=== PATIENT | female | born 1940 | race Caucasian/White ===

== ENCOUNTER → 2016-08-01 | Outpatient (CLI) | payer OTHER ==
[~2016-08-01] MED LIST: ALENDRONATE SOD70 MG PO; ALEVE220 M1 PO; CIPRO500 MG PO; CYMBALTA30 MG PO; IBUPROFEN 200200 M1 PO; LATANOPROST 0.2.5 ML OP; LYRICA 50 MG50 MG PO; LYRICA100 MG PO
== END ==
LOC: RAD 10:14
DX: M25.561 Pain in right knee (principal)

== ENCOUNTER → 2020-01-24 | Outpatient (CLI) | payer OTHER ==
[~2020-01-24] VITALS: Ht 149.9 cm; Wt 70.9 kg
[~2020-01-24] MED LIST changes: +ATORVASTATIN CA80 MG PO; +CALCIUM 500 +1 EAC6 PO; +DULOXETINE HCL60 MG PO; +HYDROCODONE PO; +IMVEXXY4 MCG VAG; +MOBIC7.5 MG PO; +MOTRIN IB200 M2 PO; +REQUIP 1 MG TABL1 M1 PO
[2020-01-24 13:41] VITALS: BP 131/71
--- NOTE | 2020-01-24 14:13 | NUR ---
Pain Clinic Assessment: 1. History of Osteoarthritis: Not Applicable History of Rheumatoid Arthritis: Not Applicable 2. Height: 4 ft. 11 in. 149.9 cm. Weight: 156.4 lb. oz. 70.943 kg. Patient's BMI: 31.6 3. Vital Signs: BP: 131/71 Pulse: 81 Resp: 20 Temp: 02 Sat: 96 ECG Mon: 4. Pain Intensity: 6-7 5. Fall Risk: Dizziness: Y Needs help standing or walking: N Fallen in the last 3 months: N Fall risk comments: 6. Patient on Blood Thinner: None 7. History of Hypertension: N 8. Opioid Therapy greater than 6 weeks: N Opiate Contract Signed: 9. Risk Assessment Tool Provided: 10. Functional Assessment Tool: 11. Recreational Drug Use: Never Drug Type: Tobacco Use: Never Smoker Tobacco Type: Amount or Packs/day: How Many Years: Alcohol Use: No Frequency: Quant:
--- NOTE | 2020-01-25 11:24 | HPC ---
[facility] [place] [address] PAIN MANAGEMENT CONSULTATION Name: GLADYS SINGH Room #: REG ERIN Himanshu.#: [id number] Admission: 01/24/20 Attend Phys: Johan Coronel DO Discharge: Date of : 44 Report #: [id number] CC: Dr. Venecia Coronel DATE OF SERVICE: 01/24/2020 REFERRING PHYSICIAN: Dr. Cuadra. CHIEF COMPLAINT: Low back pain, left lower extremity pain with paresthesias. HISTORY OF PRESENT ILLNESS: As you know, the patient is a 79-year-old female with longstanding history of low back pain, left lower extremity pain with paresthesias. She was referred to our clinic by her primary care physician in 03/2018 to treat low back pain, left lower extremity pain with paresthesias. The patient was started on medication with escalating doses of Lyrica reaching 150 mg t.i.d. with good and prolonged efficacy. The patient was doing very well and has been lost to followup visit since 07/2018. She returns today in followup visit, stating that her primary care physician has advised her that it is illegal for them to write Lyrica over 100 mg 3 times a day. She indicates that she was doing very well with the 150 mg t.i.d. dose and has recurrence of pain now at a level of 6-7/10. She returns today in followup visit to discuss the possibility of going back on the Lyrica and a possible epidural injection. She returns today to discuss this with us. She denies injury or trauma that may have led to symptom reoccurrence. She states she may have exacerbated her symptoms while lifting heavy groceries though she cannot correlate that incident directly to that activity. ALLERGIES: PENICILLIN. CURRENT MEDICATIONS: Calcium carbonate 1 tab per day, estradiol 4 mcg inserted vaginally every day, ibuprofen 200 mg once a day, atorvastatin 80 mg once a day, Lyrica 100 mg 3 times a day, meloxicam 7.5 mg twice a day, hydrocodone 7.5/325 one tab every 6 hours p.r.n. for pain, ropinirole 1 mg 3 tabs p.o. at bedtime, Cymbalta 60 mg once a day, latanoprost 1 drop each eye per day, alendronate 70 mg once a day. SOCIAL HISTORY: The patient denies tobacco, alcohol, IV or illicit drug use. She is retired, retired years ago, unaccompanied at today's visit. IMAGING: No new imaging available. 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 No rheumatoid arthritis. She indicates pain today at level of 6-7/10. She is not a fall risk, has not had a fall in last 3 months. She is not on blood thinners, nor she reportedly taking medication for hypertension. She is not on opioids provided by her primary care physician, has a low opioid addiction potential based on assessment tool. Pain impact shows severe interference of daily activities secondary to pain with a pain score of 50 out of 70. PHYSICAL EXAMINATION: VITAL SIGNS: Blood pressure 131/71, pulse is 81, respiratory rate 20 and unlabored. The patient is 96% on room air. Height 4 feet 11 inches tall, weight 156.4 pounds, BMI calculated 31.6. GENERAL: Well-developed, well-nourished, well-hydrated 79-year-old female, appears her stated age. She is in mild distress secondary to pain, placing current pain score 6-7/10. HEENT: Normocephalic, atraumatic. Pupils equal with no dilation and no anisocoria. NEUROLOGIC: Speech is fluent for patient. The patient is a fair historian. LUNGS: Clear, no wheeze, rhonchi or rales. CARDIOVASCULAR: Regular. No appreciable gallop, no rub. ABDOMEN: Soft, obese, normoactive bowel sounds. EXTREMITIES: Show no clubbing, no cyanosis. No appreciable edema. MUSCULOSKELETAL: Lower extremity strength is symmetrical, though there is giveaway strength noted with hip flexion, knee extension on the left when compared to the right. Seated straight leg raising negative. Supine straight leg raising appears to be positive on the left, though difficult for us to ascertain specifically as the patient is nonspecific in the distribution of pain. Gait is mildly antalgic favoring left lower extremity. She appears to be intact to light touch from L1 through S2 dermatomes. ASSESSMENT: 1. Chronic low back pain. 2. Left buttock pain, presumably lumbar radiculopathy. 3. Chronic intractable pain. PLAN: 1. The patient returns today in followup visit having been lost to our services since 07/2018 where she was taking Lyrica 150 mg t.i.d. with good efficacy. The patient states that she has been advised by her primary care physician that it is illegal for him to write medication over 100 mg 3 times a day in the form of pregabalin. This I believe is a misunderstanding from the patient's standpoint as there is no legal limitation to any medication as long as it is within the standard of care. Lyrica can be dosed as high as 600 mg per day, that of 150 mg 3 times a day that equals a total of 450 well within the safe range. I have advised the patient that we will be willing to provide her with 50 mg tablet to add to her current 100 mg tablets to reach 150 mg t.i.d. for where she was receiving excellent benefit, no side effects. She can follow up with her PCP to continue this therapy. There is no requirement that a pain management physician write Lyrica 150 mg 3 times a day and I do believe the patient was either misinformed or misunderstood the conversation. This can be easily taken over by the primary care. This is a schedule free medication and requires no special training. The patient's prescription was sent via e-scribed to local pharmacy. She will be taking the 50 mg we provided 3 times a day with her current 100 mg for a total of 150 mg t.i.d. 2. We have advised the patient if she is not seeing significant pain improvement in the next 2 weeks with the changes in medication, return for an epidural injection under fluoroscopic guidance to address suspected lumbar radiculopathy. We made the patient a tentative appointment to follow up with our clinic. At that time, if she is doing well, she can cancel that appointment. 3. We wish to thank Dr. Cuadra for the opportunity to see this patient in consultation. We will keep you apprised of any other changes to be made in medication management before returning her care to your capable services. We will be always available to see her back for epidural injections. <ELECTRONICALLY SIGNED> By: Johan Coronel DO 01/25/20 1124 1600 36 Johan Coronel DO /nt
== END ==
LOC: PAIN 06:59
PROVIDERS: ATTEND Anesthesiology Pain Medicine
DX: M54.16 Radiculopathy, lumbar region (principal); G89.4 Chronic pain syndrome; Z88.0 Allergy status to penicillin; Z79.899 Other long term (current) drug therapy; Z79.891 Long term (current) use of opiate analgesic

== ENCOUNTER → 2020-02-14 | Outpatient (CLI) | payer OTHER ==
--- NOTE | 2020-02-14 12:48 | NUR ---
Pain Clinic Assessment: 1. History of Osteoarthritis: Not Applicable History of Rheumatoid Arthritis: Not Applicable 2. Height: ft. in. cm. Weight: lb. oz. kg. Patient's BMI: 3. Vital Signs: BP: Pulse: Resp: Temp: 02 Sat: ECG Mon: 4. Pain Intensity: 10 5. Fall Risk: Dizziness: Needs help standing or walking: Fallen in the last 3 months: Fall risk comments: 6. Patient on Blood Thinner: None 7. History of Hypertension: N 8. Opioid Therapy greater than 6 weeks: N Opiate Contract Signed: 9. Risk Assessment Tool Provided: 10. Functional Assessment Tool: 11. Recreational Drug Use: Never Drug Type: Tobacco Use: Never Smoker Tobacco Type: Amount or Packs/day: How Many Years: Alcohol Use: No Frequency: Quant:
--- NOTE | 2020-02-15 12:43 | HPC ---
[facility] [place] [address] PAIN MANAGEMENT CONSULTATION Name: GLADYS SINGH Room #: REG ERIN Himanshu.#: [id number] Admission: 02/14/20 Attend Phys: Johan Coronel DO Discharge: Date of : 42 Report #: [id number] THIS REPORT FOR: cc: Phillip Rothman MD, Eric K. MD Johnson, James E. DO ~ DATE OF SERVICE: 02/14/2020 REFERRING PHYSICIAN: Dr. Cuadra. CHIEF COMPLAINT: Low back pain, left lower extremity pain with paresthesias. HISTORY OF PRESENT ILLNESS: As you know, the patient is a 79-year-old female returning today in followup visit with 10/10 pain. She is reporting pain radiating from the low back down the left leg. She returns today to undergo lumbar epidural injection under fluoroscopic guidance. She was referred back to our clinic after being lost to followup visit for nearly a year and a half due to decrease in her Lyrica leading to exacerbation of her pain. She was advised by her primary care physician that they could not right greater than 300 mg of Lyrica per day as it was illegal. I believe the patient is misinformed or misheard the conversation. There is no legal statute in regards to the use of Lyrica medications. She has returned today indicating that despite the increase in her Lyrica, her pain continued. She has been provided today's appointment to undergo lumbar epidural injection under fluoroscopic guidance. She comes to us without imaging studies, so we cannot advise the patient on the severity of pathology. She returns today to undergo an epidural injection under fluoroscopic guidance. ALLERGIES: PENICILLIN. CURRENT MEDICATIONS: See chart. SOCIAL HISTORY: The patient denies tobacco, alcohol, IV or illicit drug use. She is retired, retired years ago, unaccompanied today. IMAGING: No new imaging available. PQRS: The patient has known arthritic changes of the lumbar spine, bilateral hips. No rheumatoid arthritis. Pain intensity today 10/10. She is a fall risk, but has not had a fall in last 3 months. She is not on blood thinners, nor she is treated for hypertension. She is on chronic opioids and has a low opiate addiction potential. Pain impact 70/70, complete interference of daily activities secondary to pain. PHYSICAL EXAMINATION: [facility] [address] [place] [address] PAIN MANAGEMENT CONSULTATION Name: GLADYS SINGH Room #: REG CL Himanshu.#: [id number] Admission: 02/14/20 Attend Phys: Johan Coronel DO Discharge: Date of : 42 Report #: [id number] VITAL SIGNS: Blood pressure 142/78, pulse 104, respiratory rate 22. She is emotionally labile, placing current pain score 10/10. HEENT: Normocephalic, atraumatic. EXTREMITIES: Show no clubbing, no cyanosis, and no edema. MUSCULOSKELETAL: Lower extremity strength equal and symmetrical, though there is giveaway strength noted with hip flexion, knee extension on the left when compared to the right. Seated straight leg raising negative. Supine straight leg raising positive on the left. ASSESSMENT: 1. Lumbar radiculopathy. 2. Chronic low back pain. 3. Chronic intractable pain. PLAN: 1. The patient has returned today in followup visit indicating intensification of pain to a level of 10/10. We made adjustments in her Lyrica last visit as she was reduced from 450 to 300 mg and lost efficacy. We reinitiated the medication at the dose where she was seeing good benefit without side effects. She unfortunately did not see pain resolved. She returns today for an epidural injection under fluoroscopic guidance. The patient has been advised risks and benefits of the procedure. These risks include but are not necessarily limited to bleeding, bruising, infection, worsening pain, no relief of pain, also risk of temporary or permanent muscle weakness, temporary or permanent nerve damage, possible paralysis and . The patient states understood and wished to proceed. 2. No medication changes made at today's visit. She will continue the 450 Lyrica dose per day. She will continue the medication as directed. 3. I have advised the patient if she does not note any improvement in symptoms with the epidural injection today, she will contact her PCP to undergo MRI and obtain referral for Neurosurgery consultation. If she sees benefit with the epidural injection we would be more than willing to see the patient back in followup to undergo next in the series when or if her symptoms do return. The patient is agreeable. PROCEDURE NOTE: DESCRIPTION OF PROCEDURE: L5-S1 left paramedian epidural steroid injection under fluoroscopic guidance. This is the first procedure of the first series that the patient is undergoing. After obtaining written consent, the patient was taken back to the fluoroscopy suite, placed in a prone position with pillow under the abdomen to decrease lumbar lordosis. The skin overlying the lumbosacral area was then prepped and draped in aseptic fashion. The L5-S1 vertebral interspace was then identified by AP fluoroscopy. The skin and subcutaneous tissue overlying the target site [address] [address] PAIN MANAGEMENT CONSULTATION Name: GLADYS SINGH Room #: REG CLPedro Hamlin#: [id number] Admission: 02/14/20 Attend Phys: Johan Coronel DO Discharge: Date of : 42 Report #: [id number] of injection was anesthetized with 3 mL 1% lidocaine. A 20-guage 3-1/2 inch Tuohy needle was then advanced under fluoroscopic guidance towards the epidural space using a left paramedian approach. The epidural space was identified using loss of resistance to air technique. After negative aspiration for heme or cerebrospinal fluid, a total of 1 mL of Omnipaque was injected. A lumbar epidurogram was confirmed using both AP and lateral fluoroscopy. After negative aspiration for heme or cerebrospinal fluid, 5 mL of a solution containing 2 mL 40 mg per mL, 80 mg total triamcinolone along with 3 mL lidocaine 1% was injected in increments. Contrast spread was noted posterior epidural space. The needle was then retracted approximately half way and needle tract flushed with 1 mL of 1% lidocaine. Needle was then removed. There were no apparent sensory or motor deficits in the lower extremity following the procedure. A sterile bandage was placed over the injection site. The heart rate, pulse, oximetry and blood pressure were continuously monitored after the procedure. There were no apparent complications. The patient tolerated the procedure well and was carefully escorted to the recovery room in stable condition. There were no apparent complications. After meeting discharge criteria, the patient was then discharged home. <ELECTRONICALLY SIGNED> By: Johan Coronel DO 02/15/20 1243 1348 0043 Johan Coronel DO /nt
== END | disposition home or self-care (01) ==
LOC: PAIN 02-07 10:24
PROVIDERS: ATTEND Anesthesiology Pain Medicine
DX: M54.16 Radiculopathy, lumbar region (principal); G89.29 Other chronic pain; Z98.890 Other specified postprocedural states; Z79.899 Other long term (current) drug therapy; Z88.0 Allergy status to penicillin

== ENCOUNTER → 2020-03-20 | Outpatient (CLI) | payer OTHER ==
[~2020-03-20] VITALS: Ht 149.9 cm; Wt 66.2 kg
[~2020-03-20] MED LIST changes: +LYRICA150 MG PO
[2020-03-20 12:44] VITALS: BP 134/84
--- NOTE | 2020-03-20 13:03 | NUR ---
Pain Clinic Assessment: 1. History of Osteoarthritis: Not Applicable History of Rheumatoid Arthritis: Not Applicable 2. Height: 4 ft. 11 in. 149.9 cm. Weight: 146.0 lb. oz. 66.225 kg. Patient's BMI: 29.5 3. Vital Signs: BP: 134/84 Pulse: 91 Resp: 16 Temp: 02 Sat: 98 ECG Mon: 4. Pain Intensity: 7-8 5. Fall Risk: Dizziness: Y Needs help standing or walking: N Fallen in the last 3 months: N Fall risk comments: 6. Patient on Blood Thinner: None 7. History of Hypertension: N 8. Opioid Therapy greater than 6 weeks: N Opiate Contract Signed: 9. Risk Assessment Tool Provided: 10. Functional Assessment Tool: 11. Recreational Drug Use: Never Drug Type: Tobacco Use: Never Smoker Tobacco Type: Amount or Packs/day: How Many Years: Alcohol Use: No Frequency: Quant:
--- NOTE | 2020-03-21 11:33 | HPC ---
[facility] [address] [place] [address] PAIN MANAGEMENT CONSULTATION Name: GLADYS SINGH [id number] Admission: 03/20/20 Attend Phys: Johan Coronel DO Discharge: Date of : 42 Report #: [id number] THIS REPORT FOR: cc: Phillip Rothman MD, Eric K. MD Johnson, James E. DO ~ DATE OF SERVICE: 03/20/2020 REFERRING PHYSICIAN: Phillip Rothman MD CHIEF COMPLAINT: Low back pain, left lower extremity pain with paresthesias. HISTORY OF PRESENT ILLNESS: As you know, the patient is a 79-year-old female who returns today in followup visit having undergone a lumbar epidural injection at her last visit of 02/14/2020 where she was complaining of 10/10 pain and unable to ambulate on her own. She returns today in followup visit stating her pain continues. It is described as constant, aching and throbbing. She places current pain score at 7-8/10. She states that standing, walking, sitting and any activity tends to exacerbate symptoms. Pain is improved with ice, heat and cold compresses, repositioning, lying down and pillows. The patient is having difficulty today articulating the source of her symptoms. She indicates pain begins in low back, radiates to the buttock and into the groin and that she is not confident that the epidural injection at our last visit gave much in the way of improvement in symptoms, though she has returned today ambulating on her own. Her pain is now at a level of 7-8/10 and she is able to sit comfortably during our evaluation today. She has been provided today's appointment to return to discuss the possibility of undergoing the next in the series of lumbar epidural injections. ALLERGIES: PENICILLIN. CURRENT MEDICATIONS: Pregabalin 150 mg 3 times a day, calcium carbonate 1 tab per day, estradiol 4 mcg intravaginally, ibuprofen 200 mg t.i.d., atorvastatin 80 mg per day, meloxicam 7.5 mg once a day, ropinirole 1 mg 3 tabs p.o. at bedtime, duloxetine 60 mg once a day, alendronate 70 mg once a week. SOCIAL HISTORY: The patient denies tobacco, alcohol, IV or illicit drug use. She is retired, retired years ago, unaccompanied today. IMAGING: No new imaging available. PQRS: The patient has known arthritic changes of the lumbar spine, bilateral hips. No rheumatoid arthritis. Pain intensity is reported today at 7-8/10. She is at fall risk, has not had a fall in last 3 months. She is not on blood thinners and is not treated for hypertension. She is reporting opioids, but they do not appear to be chronic in nature. She has a low opioid addiction [address] [address] PAIN MANAGEMENT CONSULTATION Name: GLADYS SINGH [id number] Admission: 03/20/20 Attend Phys: Johan Coronel DO Discharge: Date of : 42 Report #: [id number] potential based on assessment tool. Pain impact is 50/70 indicating severe interference of daily activities secondary to pain. PHYSICAL EXAMINATION: GENERAL: Well-developed, well-nourished, well-hydrated, 79-year-old female. She is somewhat confused today. It is difficult to follow some of her trains of thought. HEENT: Normocephalic, atraumatic. Pupils are round. The patient is wearing a mask in compliance with COVID-19 regulations. EXTREMITIES: Show no clubbing, no cyanosis, and no edema. MUSCULOSKELETAL: Lower extremity strength is reduced on the left due to pain generation. This is noted with hip flexion, knee extension. Seated straight leg raising negative. Supine straight leg raising is positive on the left. Agusto's test is mildly positive. Modified Gaenslen's positive for axial low back pain. Ankle clonus negative. Gait is antalgic favoring left lower extremity, but significantly improved from previous evaluation. ASSESSMENT: 1. Lumbar radiculopathy. 2. Chronic low back pain. 3. Left hip pain. 4. Chronic intractable pain. PLAN: 1. The patient returns today in followup visit reporting that she does not feel she had gained much in the way of improvement with the epidural injection. Interestingly, the patient was unable to ambulate at our last visit and was quite emotionally labile. At this visit, the patient ambulated in on her own. She does have a slight antalgic gait favoring the left lower extremity, but she is able to sit comfortably during our evaluation. The patient is somewhat confused, unable to locate her pain. She is experiencing some flight of ideas, unable to concentrate on the discussion we are having. We were able to obtain information that the patient has some improvement in symptoms. The fact that she is showing improvement in gait and is able to sit comfortably during our discussion would indicate she receives some benefit with the epidural injection. She is also reporting a lesser pain score, she was 10/10 at our last visit, she is now at 7-8/10 at its worst. She returns to discuss the possibility of treatment. We would recommend possibly undergoing next in the series of epidural injections. She is also complaining of left hip pain. I do feel imaging in that area would be beneficial given her age and her body habitus. 2. The patient will be sent for x-ray imaging of the left hip. Some of the distribution of symptoms she is experiencing could be related to this area. We will have imaging done and will review those findings once they are available. 3. We are going to plan to see the patient back in followup visit tomorrow to undergo a lumbar epidural injection under fluoroscopic guidance. The hope is that the patient will see some significant improvement in symptoms with this [facility] [address] [place] [address] PAIN MANAGEMENT CONSULTATION Name: GLADYS SINGH Room #: REG [facility].#: [id number] Admission: 03/20/20 Attend Phys: Johan Coronel DO Discharge: Date of : 44 Report #: [id number] injection. We will establish an appointment date for tomorrow for the patient to undergo the procedure, assuming we can gain authorization. We will begin that authorization process immediately. We are hopeful that the patient can undergo the injection tomorrow, although if we do not have authorization, we will then have the patient return once we have completed that authorization process. 4. We have reviewed the patient's x-ray imaging of the left hip. I am pleased to advise there are no significant osteoarthritic changes, there are no fractures or subluxations. It appears to be relatively normal hip thus confirming the symptoms she is experiencing at present are lumbar radicular in origin. The patient will contact our clinic tomorrow for these findings. I am pleased to advise that there are no concerning findings in that area. 5. We have provided the patient a refill prescription of her Lyrica. We will continue the dose of 150 mg 3 times a day. Apparently, her primary care physician has been unwilling to provide the level of Lyrica necessary. We took over the prescription last visit. We have no problem writing 150 mg dose 3 times a day as the patient seeks a new primary care physician. Once she is stabilized on the dose, we will be referring the patient back to the primary to continue the therapy as it would not require a pain management physician to continue Lyrica therapy at 450 mg dose consistent with the dose parameters of that medication. 6. The patient will be following up with her primary care physician, Dr. Rothman, to discuss other issues. She is describing symptoms of dysphoria, near falls, dizziness and disorientation, which she needs to be evaluated further. We will defer to primary for this issue. 7. We will see the patient back in followup visit once we have achieved authorization to undergo lumbar epidural injection. We are hopeful the patient will see more profound improvement with the second in the series. <ELECTRONICALLY SIGNED> By: Johan Coronel DO 03/21/20 1133 1605 2047 Johan Coronel DO /nt
== END ==
LOC: PAIN 06:58 → RAD 06:58 → PAIN 13:42
PROVIDERS: ATTEND Anesthesiology Pain Medicine
DX: M25.552 Pain in left hip (principal); M54.16 Radiculopathy, lumbar region

== ENCOUNTER → 2020-04-10 | Outpatient (CLI) | payer OTHER ==
[~2020-04-10] VITALS: Ht 149.9 cm; Wt 64.7 kg
[2020-04-10 13:28] VITALS: BP 121/82
--- NOTE | 2020-04-10 13:46 | NUR ---
Pain Clinic Assessment: 1. History of Osteoarthritis: DENIES History of Rheumatoid Arthritis: DENIES 2. Height: 4 ft. 11 in. 149.9 cm. Weight: 142.6 lb. oz. 64.683 kg. Patient's BMI: 28.8 3. Vital Signs: BP: 121/82 Pulse: 94 Resp: 22 Temp: 02 Sat: 99 ECG Mon: 4. Pain Intensity: 10 5. Fall Risk: Dizziness: Y Needs help standing or walking: N Fallen in the last 3 months: N Fall risk comments: 6. Patient on Blood Thinner: None 7. History of Hypertension: N 8. Opioid Therapy greater than 6 weeks: N Opiate Contract Signed: 9. Risk Assessment Tool Provided: 10. Functional Assessment Tool: 50 11. Recreational Drug Use: Never Drug Type: Tobacco Use: Never Smoker Tobacco Type: Amount or Packs/day: How Many Years: Alcohol Use: No Frequency: Quant:
--- NOTE | 2020-04-17 08:02 | HPC ---
[facility] [place] [address] PAIN MANAGEMENT CONSULTATION Name: GLADYS SINGH Room #: REG [facility] Himanshu.#: [id number] Admission: 04/10/20 Attend Phys: Johan Coronel DO Discharge: Date of : 44 Report #: [id number] THIS REPORT FOR: cc: Phillip Rothman MD, Eric K. MD Johnson, James E. DO ~ DATE OF SERVICE: 04/10/2020 CHIEF COMPLAINT: Low back pain, left lower extremity pain and paresthesias. HISTORY OF PRESENT ILLNESS: As you know, the patient is a 79-year-old female returning in followup visit with pain score of up to 10/10. The patient underwent a lumbar epidural injection under fluoroscopic guidance to address lumbar radiculopathy at our last visit with a 50% improvement in overall pain. Unfortunately, this only lasted for about 2 weeks with a slow and progressive return of symptoms. The patient was convinced at last visit, her symptoms were related to left hip. The patient underwent x-ray imaging per her request, findings show no pathology. The patient returns today in followup visit to discuss possibly undergoing the next in the series of epidural injections. She is quite confused and has difficulty following our conversation today. There have been multiple times during our discussion at this visit that she completely misunderstood the direction of treatment and the source of her symptoms. We attempted multiple times to redirect the patient and correct her understanding. We are hopeful that she was able to understand the source of her symptoms as her lumbar spine. We did advise the patient today that we would be more than willing to provide the next in the series of epidural injections, but if she notes only transient improvement with this injection that she should follow up with her PCP in regards to a referral for surgical consultation. She returns today in followup visit for the next in the series of epidural injections. ALLERGIES: PENICILLIN. CURRENT MEDICATIONS: Pregabalin 150 mg t.i.d., calcium carbonate 1 tab per day, estradiol 4 mcg intravaginally, ibuprofen 200 mg t.i.d., atorvastatin 80 mg per day, meloxicam 7.5 mg once a day, ropinirole 1 mg 3 times a day, duloxetine 60 mg once a day, alendronate 70 mg once a week. SOCIAL HISTORY: The patient denies tobacco, alcohol, IV or illicit drug use. She is retired, retired years ago, unaccompanied today. IMAGING: X-ray of the left hip obtained 03/20/2020 shows normal findings. The joint space is well preserved. No osteoarthritic changes. PQRS: The patient has known arthritic changes of the lumbar spine. No rheumatoid arthritis. She is placing pain intensity today 10/10. She is not a fall risk, has not had a fall in last 3 months. [place] [address] PAIN MANAGEMENT CONSULTATION Name: GLADYS SINGH Room #: REG [facility] Himanshu.#: [id number] Admission: 04/10/20 Attend Phys: Johan Coronel DO Discharge: Date of : 42 Report #: [id number] and is not treated for hypertension. She is not on chronic opioids. Pain impact score is 50 of 70, severe interference of daily activities secondary to pain. PHYSICAL EXAMINATION: VITAL SIGNS: Blood pressure 121/82, pulse 94, respiratory rate 22, unlabored, patient is 99% on room air. Height 4 feet 11 inches tall, weight 142.6 pounds and BMI calculated 28.8. GENERAL: Well-developed, well-nourished, well-hydrated 79-year-old somewhat confused female appearing stated age, pain is rated today 10/10. HEENT: Normocephalic, atraumatic. Pupils equal, round and reactive. Speech fluent. EXTREMITIES: Show no clubbing, no cyanosis, no edema. MUSCULOSKELETAL: Lower extremity strength is symmetrical 5/5. Muscle bulk and tone equal and symmetrical. Seated straight leg raising negative. Supine straight leg raising remains positive left. ASSESSMENT: 1. Symptomatic lumbar radiculopathy. 2. Chronic low back pain. 3. Chronic intractable pain. PLAN: 1. The patient returns today in followup visit where we have reviewed recent x-ray imaging. I am pleased to advise the patient that there are no findings in her left hip of any concern. Joint space is well preserved. There are no concerning changes. The symptoms that she is experiencing are unrelated to this left hip. 2. The patient has been advised of the risks and benefits of a lumbar epidural injection. She has received 50% improvement in overall pain with the injection at the last visit, but unfortunately it was shortlived in its response. We recommend the next in the series today. If it is then successful, we could utilize epidural injections on an as needed basis. If this is unsuccessful alleviating symptoms, we would recommend a referral for surgical consultation. She will be following up with her PCP in regards to this issue. 3. No medication changes made at today's visit. The patient will continue current medical therapy as prior prescribed. 4. We plan to see the patient back in followup visit in 2 months. At this time, we will discuss the efficacy of today's epidural injection and determine next in the series of epidural injections would be recommended. PROCEDURE NOTE DESCRIPTION OF PROCEDURE: L5-S1 left paramedian epidural steroid injection under fluoroscopic guidance. [facility] [address] [place] [address] PAIN MANAGEMENT CONSULTATION Name: GLADYS SINGH Room #: REG CL Himanshu.#: [id number] Admission: 04/10/20 Attend Phys: Johan Coronel DO Discharge: Date of : 42 Report #: [id number] This is the second procedure of the first series that the patient is undergoing. After obtaining written consent, the patient was taken back to the fluoroscopy suite, placed in a prone position with pillow under the abdomen to decrease lumbar lordosis. The skin overlying the lumbosacral area was then prepped and draped in aseptic fashion. The L5-S1 vertebral interspace was then identified by AP fluoroscopy. The skin and subcutaneous tissue overlying the target site of injection was anesthetized with 3 mL 1% lidocaine. A 20-gauge 3-1/2 inch Tuohy needle was then advanced under fluoroscopic guidance towards the epidural space using a left paramedian approach. The epidural space was identified using loss of resistance to air technique. After negative aspiration for heme or cerebrospinal fluid, a total of 1 mL of Omnipaque was injected. A lumbar epidurogram was confirmed using both AP and lateral fluoroscopy. After negative aspiration for heme or cerebrospinal fluid, 5 mL of solution containing 2 mL 40 mg per mL, 80 mg total triamcinolone along with 3 mL of lidocaine 1% was injected in increments. Contrast spread was noted posterior epidural space. The needle was then retracted approximately half way and needle tract flushed with 1 mL of 1% lidocaine. Needle was then removed. There were no apparent sensory or motor deficits in the lower extremity following the procedure. A sterile bandage was placed over the injection site. The heart rate, pulse, oximetry and blood pressure were continuously monitored after the procedure. There were no apparent complications. The patient tolerated the procedure well and was carefully escorted to the recovery room in stable condition. There were no apparent complications. After meeting discharge criteria, the patient was then discharged home. <ELECTRONICALLY SIGNED> By: Johan Coronel DO 04/17/20 0802 [id number] Johan Coronel DO /nt
== END | disposition home or self-care (01) ==
LOC: PAIN 06:57
PROVIDERS: ATTEND Anesthesiology Pain Medicine
DX: M54.16 Radiculopathy, lumbar region (principal); G89.29 Other chronic pain; Z98.890 Other specified postprocedural states; Z79.899 Other long term (current) drug therapy; Z88.0 Allergy status to penicillin

== ENCOUNTER → 2021-01-01 | Outpatient (CLI) | payer OTHER ==
[~2021-01-01] VITALS: Ht 147.3 cm; Wt 64.0 kg
[~2021-01-01] MED LIST changes: +ALPHAGAN P5 ML OPHTHALMIC; +K2 PLUS D3 TAB1 EACH PO
--- NOTE | ~2021-01-01 | HPC ---
[facility] [place] [address] PAIN MANAGEMENT CONSULTATION Name: GLADYS SINGH [id number] Admission: 01/01/21 Attend Phys: Johan Coronel DO Discharge: Date of : 42 Report #: [id number] THIS REPORT FOR: cc: Phillip Rothman MD, Eric K. MD Johnson, James E. DO ~ cc: Phillip Rothman MD DATE OF SERVICE: 01/01/2021 REFERRING PHYSICIAN: 01/01/2021. CHIEF COMPLAINT: Low back pain, left lower extremity pain and right upper extremity pain with paresthesias. HISTORY OF PRESENT ILLNESS: As you know, the patient is a 80-year-old female returning in followup visit reporting a pain level of 0/10. She describes the pain now is more of a numbness, tenderness, throbbing. It is periodic in nature. She describes the pain as exacerbated with standing and walking, improves with sitting down. The patient reports pain begins in low back, radiates down both legs. She continues to experience left flank and hip pain, which has been unresolved with our injection therapies. She returns today in followup visit requesting a lumbar epidural injection under fluoroscopic guidance to address recurrent and constant neck, back and bilateral lower extremity pain and in hopes of improving her left flank and hip pain. The patient reports that despite the two different epidural injections provided prior, she had no improvement in the symptoms of the left flank and hip area. We had advised the patient to follow up with her PCP in regards to possible new imaging of the area and determine whether or not a referral for evaluation for hip pathology may be necessary. The patient has not followed up on that issue. We have the patient return today as she had contact our clinic requesting assistance to address the recurrent pain. She denies injury or trauma. ALLERGIES: PENICILLIN. CURRENT MEDICATIONS: See chart. SOCIAL HISTORY: The patient denies tobacco, alcohol or illicit drug use. She is retired, retired years ago, unaccompanied today. IMAGING: No new imaging available. PQRS: The patient has known arthritic changes of lumbar spine. No rheumatoid arthritis. She is placing pain today at around up to 1-2/10 depending on activity, not a fall risk, has not had a fall in last 3 months. She is not on blood thinners, reports she is not treated for hypertension. She is not on chronic opioids, has a low opiate addiction potential. Pain impact score is [address] [place] [address] PAIN MANAGEMENT CONSULTATION Name: GLADYS SINGH Room #: REG [facility]#: [id number] Admission: 01/01/21 Attend Phys: Johan Coronel DO Discharge: Date of : 42 Report #: [id number] of 70, moderate interference of daily activities secondary to pain. PHYSICAL EXAMINATION: VITAL SIGNS: Blood pressure 140/86, pulse is 75, respiratory rate 20, unlabored. The patient 98% on room air. Height 5 feet 5 inches tall, weight 180 pounds, BMI calculated 30. GENERAL: Well-developed, well-nourished, well-hydrated 80-year-old female, appears stated age, pain is rated today 0-3/10. HEENT: Normocephalic, atraumatic. Pupils equal, round and responsive. She is wearing a mask in compliance with COVID-19 regulations. EXTREMITIES: Show no clubbing, no cyanosis. No appreciable edema. MUSCULOSKELETAL: Lower extremity strength is symmetrical again today 5/5. Seated straight leg raising negative. Supine straight leg raising is positive on the left. Agusto's test is negative. Modified Gaenslen's positive for axial low back pain. ASSESSMENT: 1. Symptomatic lumbar radiculopathy. 2. Chronic left hip pain. 3. Chronic low back pain. 4. Chronic intractable pain. PLAN: 1. The patient returns today in followup visit where she is describing left flank and hip pain. We have had the patient undergo x-ray imaging of the left hip, which shows normal findings, only mild arthritic changes, no significant joint destruction or concerning findings. This does not rule out the possibility that the patient might have some underlying soft tissue process and the hip including labral tear. If the patient continues to experience symptoms and does not see resolution of symptoms with the proposed epidural injection, then I would recommend that she follow up with her PCP to discuss options of further evaluation and referral for orthopedics if deemed necessary. We are hopeful the patient will see benefit with this next proposed procedure. If she does not, she will be following up with her PCP in regards to this left flank and hip symptomatology. 2. Due to third alliance party payer restrictions authorization had to be obtained before the patient could undergo the proposed lumbar epidural injection under fluoroscopic guidance. We will begin that authorization process immediately. Once it has been completed, we will have the patient return to undergo the proposed procedure, which would be an L5-S1 left paramedian epidural steroid injection. I am hopeful that the authorization will be obtained quickly and we will have the patient return to undergo the procedure. 3. No medication changes made at today's visit. The patient will continue current medical therapy as prior prescribed. [address] [address] PAIN MANAGEMENT CONSULTATION Name: GLADYS SINGH Room #: REG [facility].#: [id number] Admission: 01/01/21 Attend Phys: Johan Coronel DO Discharge: Date of : 42 Report #: [id number] 4. We will see the patient back in followup visit once authorization has been completed to undergo lumbar epidural injection under fluoroscopic guidance. By: [id number] Johan Coronel DO /nt
[2021-01-01 12:38] VITALS: BP 135/79
--- NOTE | 2021-01-01 12:42 | NUR ---
Pain Clinic Assessment: 1. History of Osteoarthritis: DENIES History of Rheumatoid Arthritis: DENIES 2. Height: 4 ft. 10 in. 147.3 cm. Weight: 141.0 lb. oz. 63.957 kg. Patient's BMI: 29.5 3. Vital Signs: BP: 135/79 Pulse: 81 Resp: 18 Temp: 02 Sat: 97 ECG Mon: 4. Pain Intensity: 4 5. Fall Risk: Dizziness: N Needs help standing or walking: N Fallen in the last 3 months: N Fall risk comments: 6. Patient on Blood Thinner: None 7. History of Hypertension: N 8. Opioid Therapy greater than 6 weeks: N Opiate Contract Signed: 9. Risk Assessment Tool Provided: low-0 10. Functional Assessment Tool: 50/70 11. Recreational Drug Use: Never Drug Type: Tobacco Use: Never Smoker Tobacco Type: Amount or Packs/day: How Many Years: Alcohol Use: No Frequency: Quant:
== END ==
LOC: PAIN 10:32
PROVIDERS: ATTEND Anesthesiology Pain Medicine
DX: M54.16 Radiculopathy, lumbar region (principal); G89.4 Chronic pain syndrome; M25.552 Pain in left hip

== ENCOUNTER → 2021-01-08 | Outpatient (CLI) | payer OTHER ==
[~2021-01-08] VITALS: Ht 147.3 cm; Wt 65.0 kg
[2021-01-08 11:02] VITALS: BP 156/82
--- NOTE | 2021-01-08 11:37 | NUR ---
Pain Clinic Assessment: 1. History of Osteoarthritis: DENIES History of Rheumatoid Arthritis: DENIES 2. Height: 4 ft. 10 in. 147.3 cm. Weight: 143.4 lb. oz. 65.046 kg. Patient's BMI: 30.0 3. Vital Signs: BP: 156/82 Pulse: 77 Resp: 16 Temp: 02 Sat: 96 ECG Mon: 4. Pain Intensity: 5 5. Fall Risk: Dizziness: N Needs help standing or walking: N Fallen in the last 3 months: N Fall risk comments: 6. Patient on Blood Thinner: None 7. History of Hypertension: N 8. Opioid Therapy greater than 6 weeks: N Opiate Contract Signed: 9. Risk Assessment Tool Provided: low-0 10. Functional Assessment Tool: 50/70 11. Recreational Drug Use: Never Drug Type: Tobacco Use: Never Smoker Tobacco Type: Amount or Packs/day: How Many Years: Alcohol Use: Yes Frequency: Monthly Quant: 1
--- NOTE | 2021-01-09 08:04 | HPC ---
[address] [address] PAIN MANAGEMENT CONSULTATION Name: GLADYS SINGH Room #: REG Pedro Albina.#: [id number] Admission: 01/08/21 Attend Phys: Johan Coronel DO Discharge: Date of : 42 Report #: [id number] THIS REPORT FOR: cc: Phillip Rothman MD, Eric K. MD Johnson, James E. DO ~ cc: Phillip Rothman MD DATE OF SERVICE: 01/08/2021 REFERRING PHYSICIAN: Dr. Phillip Rothman. CHIEF COMPLAINT: Low back pain, bilateral lower extremity pain with paresthesias. HISTORY OF PRESENT ILLNESS: As you know, the patient is a 80-year-old female returning in followup visit with a pain score of about 5/10. She has requested and we have obtained prior authorization for the patient to undergo the next in the series of lumbar epidural injections in hopes of improving pain. The patient returns today in followup visit stating she has suffered no new injury, no new trauma since our last visit. There have been no changes in medication management since our last visit that would preclude her from undergoing the requested epidural injection proposed today. She has been advised risks and benefits of the procedure, states understood and wished to proceed. ALLERGIES: PENICILLIN. CURRENT MEDICATIONS: Alphagan P, vitamin D3, pregabalin, calcium carbonate, estradiol, atorvastatin, ropinirole, hydrocodone, duloxetine and Fosamax. SOCIAL HISTORY: The patient denies tobacco, alcohol or IV or illicit drug use. She is retired, retired years ago, unaccompanied today. IMAGING: No new imaging available. PQRS: The patient has known arthritic changes of the lumbar spine. No rheumatoid arthritis, placing current pain score at 5/10. She is not a fall risk, has not had a fall in last 3 months. She is not on blood thinners nor is she treated for hypertension. She is not on chronic opioids, has a low opiate addiction, based on our assessment tool. Pain impact remains high at 50 of 70, severe interference of daily activities secondary to pain. PHYSICAL EXAMINATION: VITAL SIGNS: Blood pressure 156/82, pulse is 77, respiratory rate 16 and unlabored. The patient is 96% on room air. CONSTITUTIONAL: Height 4 feet 10 inches tall, weight 143.4 pounds, BMI calculated 30. [address] [address] PAIN MANAGEMENT CONSULTATION Name: GLADYS SINGH Room #: REG ERIN Yakelin#: [id number] Admission: 01/08/21 Attend Phys: Johan Coronel DO Discharge: Date of : 42 Report #: [id number] GENERAL: Well-developed, well-nourished, well-hydrated 79-year-old female, appearing stated age, pain is rated today around 5/10. HEENT: Normocephalic, atraumatic. Pupils are round. She is wearing a mask in compliance with COVID-19 regulations and hospital restrictions. EXTREMITIES: Show no clubbing, no cyanosis, no edema. MUSCULOSKELETAL: Lower extremity strength is symmetrical again today at 5/5. Muscle bulk and tone is symmetrical. Seated straight leg raising negative. Supine straight leg raising is positive on the left. Gait is normal. Downgoing Babinski's. ASSESSMENT: 1. Symptomatic lumbar radiculopathy. 2. Chronic left hip and buttock pain. 3. Chronic low back pain. 4. Intractable pain. PLAN: 1. The patient has returned today in followup visit per the request of her primary care physician to undergo a lumbar epidural injection under fluoroscopic guidance in hopes of improving pain. The patient has been advised of the risks and the benefits of this procedure, states understood and wished to proceed. The patient has been advised we did receive prior authorization for the injection to be performed today. She is excited to undergo the procedure in hopes of gaining analgesic benefit. No medication changes made at today's visit. The patient will continue current medical therapy as prior prescribed. Plan to see the patient back in followup visit on an as needed basis for the next in the series of lumbar epidural injections. We are hopeful that the patient will once again noticed good and prolonged benefit with the epidural injection provided. PROCEDURE NOTE DESCRIPTION OF PROCEDURE: L5-S1 interlaminar epidural steroid injection under fluoroscopic guidance. After obtaining written consent, the patient was taken back to fluoroscopy suite, placed in prone position with pillow under abdomen to decrease lumbar lordosis. Skin overlying lumbosacral area prepped and draped in aseptic fashion. The L5-S1 vertebral interspace was identified by AP fluoroscopy. Skin and subcutaneous tissue overlying target site injection anesthetized with 3 mL of 1% lidocaine. A 20 gauge 3-1/2 inch Tuohy needle advanced under fluoroscopic guidance towards the epidural space using an interlaminar approach. Epidural space identified [address] [address] PAIN MANAGEMENT CONSULTATION Name: GLADYS SINGH Room #: GUS Hamlin#: [id number] Admission: 01/08/21 Attend Phys: Johan Coronel DO Discharge: Date of : 42 Report #: [id number] using loss of resistance to air technique. After negative aspiration for heme or cerebrospinal fluid, 5 mL solution containing 2 mL 40 mg per mL 80 mg total triamcinolone along with 3 mL of lidocaine 1% injected slowly. Needle retracted snf flushed with 1 mL of 1% lidocaine, then removed. Sterile bandage placed over injection site. No new motor deficits present in the lower extremity following procedure. The patient tolerated the procedure well, carefully escorted to recovery room in stable condition. No apparent complications. After meeting discharge criteria, the patient discharged home. <ELECTRONICALLY SIGNED> By: Johan Coronel DO 01/09/21 0804 [id number] Johan Coronel DO /nt
== END | disposition home or self-care (01) ==
LOC: PAIN 06:57
PROVIDERS: ATTEND Anesthesiology Pain Medicine
DX: M54.16 Radiculopathy, lumbar region (principal); G89.29 Other chronic pain; M25.552 Pain in left hip; M19.90 Unspecified osteoarthritis, unspecified site; Z98.890 Other specified postprocedural states; Z79.899 Other long term (current) drug therapy; Z88.0 Allergy status to penicillin